=== PATIENT | female | born 1940 | race African-American/Black ===

== ENCOUNTER 2019-04-20 07:53 | Emergency (ER) | payer OTHER ==
[~2019-04-20] VITALS: Ht 167.6 cm; Wt 82.0 kg
[~2019-04-20 07:53] MED LIST: ACET-2128 PO; ALEN70TA68 PO; AMLO10TA80 PO; ATOR20TA65 PO; HYDR-4134 PO; LOSA50TA41 PO; LOV40 SQ; NITR1PAT64 TD; OMEP20TA2 PO; SPIR25TA6 PO
[2019-04-20] MEDS ORDERED: HYDROCODONE/ACETAMINOPHEN 5/325MG TABLET PO ONE (09:15)
[2019-04-20 20:16] VITALS: BP 109/66
== END 2019-04-20 20:18 | disposition home or self-care (01) ==
LOC: ER 07:53
DX: I82.492 Acute embolism and thrombosis of other specified deep vein of left lower extremity (principal); I10 Essential (primary) hypertension; Z86.73 Personal history of transient ischemic attack (TIA), and cerebral infarction without residual deficits; F03.90 Unspecified dementia, unspecified severity, without behavioral disturbance, psychotic disturbance, mood disturbance, and anxiety; Z79.899 Other long term (current) drug therapy
CPT/HCPCS: 73610; 82962; 93971; 99284

== ENCOUNTER 2019-05-21 11:45 | Emergency (ER) | payer OTHER ==
[~2019-05-21] VITALS: Ht 167.6 cm; Wt 100.0 kg
[2019-05-21] MEDS ORDERED: SODIUM CHLORIDE 0.9% 1000ML BAG (SEPSIS BOLUS) IV ONE (13:30)
[2019-05-21 13:56] LABS: BASOPHILS % 0.7 % (0.0-2.0); EOSINOPHILS % 0.1 % (0.0-5.0); HEMATOCRIT. 37.9 % (36.0-48.0); HEMOGLOBIN. 12.4 g/dL (12.0-16.0); LYMPHOCYTES % 12.6 % (20.0-50.0); MEAN CORPUSCULAR HEMOGLOBIN 30.4 pg (28.0-32.0); MEAN CORPUSCULAR VOLUME 93.2 fL (81.0-99.0); MEAN PLATELET VOLUME 10.8 fl (7.4-10.4); MONOCYTES % 6.5 % (2.0-8.0); NEUTROPHILS % 80.1 % (40.0-76.0); PLATELET 224 x1000/uL (130-400); RED BLOOD CELL COUNT 4.06 mill/uL (4.2-5.4); RED CELL DISTRIBUTION WIDTH 16.4 % (11.6-14.6)
[2019-05-21 14:05] LABS: CHLORIDE 116 mEq/L (98-107)
[2019-05-21 14:14] LABS: CREATINE KINASE 81 IU/L (26-192)
[2019-05-21 14:20] LABS: CLARITY URINE TURBID (CLEAR); COLOR URINE YELLOW (YELLOW); KETONES URINE NEGATIVE (NEGATIVE); LEUKOCYTE ESTERASE URINE 3+ (NEGATIVE); NITRITE URINE NEGATIVE (NEGATIVE); OCCULT BLOOD URINE 3+ (NEGATIVE); PROTEIN URINE 2+ (NEGATIVE); SPECIFIC GRAVITY URINE 1.015 (1.005-1.030); UROBILINOGEN URINE 0.2 E.U./dL (0.2-1.0)
[2019-05-21] MEDS ORDERED: CEFTRIAXONE 1 G PREMIX 50 ML IV ONE (15:45)
[2019-05-21] MEDS ORDERED: AMLODIPINE 10MG TABLET PO ONE (18:30)
[2019-05-21] MEDS ORDERED: HYDRALAZINE HCL 25MG TABLET PO ONE (18:30)
[2019-05-21 19:12] VITALS: BP 178/85
== END 2019-05-21 19:30 | disposition short-term general hospital (02) ==
LOC: ER 11:45 → EDBEDREQ 14:54 → ER 19:30 → CANBEDREQ 20:45
DX: N39.0 Urinary tract infection, site not specified (principal); E87.0 Hyperosmolality and hypernatremia; E83.52 Hypercalcemia; F03.90 Unspecified dementia, unspecified severity, without behavioral disturbance, psychotic disturbance, mood disturbance, and anxiety; I11.9 Hypertensive heart disease without heart failure; E11.9 Type 2 diabetes mellitus without complications; I69.354 Hemiplegia and hemiparesis following cerebral infarction affecting left non-dominant side; Z86.718 Personal history of other venous thrombosis and embolism; Z79.01 Long term (current) use of anticoagulants
CPT/HCPCS: 36415; 70450; 71045; 80053; 81003; 82140; 82550; 83605; 83690; 83880; 84145; 84484; 85025; 87040; 87077; 87086; 87186; 87804; 93005; 96365; 99285; J0696; J7030; A4315